=== PATIENT | female | born 1980 | race African-American/Black ===

== ENCOUNTER 2018-03-03 16:17 | Emergency (ER) | payer MEDICAID ==
--- NOTE | 2018-03-03 18:11 | ER Document Report ---
ED Medical Screen (RME) - General Chief Complaint: Chest Pain Stated Complaint: CHEST PAIN, LEG PAIN Time Seen by Provider: 03/03/18 18:07 Notes: Patient has 2 complaints. First she is complaining of pain in the upper center of her chest anteriorly started yesterday. She had similar symptoms in pain about a year ago and was diagnosed at that time with bronchitis. Her second problem is she says both of her legs are aching in the calf region primarily, starting about a week ago. Recalls no unusual activity or injury to that area. Recalls no injury. Does not think it swollen in either leg. Has some cough, but denies significant chest congestion. Has not had any URI symptoms. No fevers. Patient has a history of acid reflux and hypertension. She is also had her thyroid removed and is on thyroid supplement. 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 Also a partial hysterectomy. TRAVEL OUTSIDE OF THE [place] IN LAST 30 DAYS: No - Related Data Allergies/Adverse Reactions: No Known Allergies Allergy (Verified 03/03/18 16:19) Past Medical History - Social History Frequency of alcohol use: Occasional Drug Abuse: None Renal/ Medical History: Denies: Hx Peritoneal Dialysis Physical Exam - Vital signs Vitals: Temp Pulse Resp BP Pulse Ox 98.9 F 86 20 146/93 H 99 03/03/18 16:31 03/03/18 16:31 03/03/18 16:31 03/03/18 16:31 03/03/18 16:31 Course - Vital Signs Vital signs: Temp Pulse Resp BP Pulse Ox 98.9 F 86 20 146/93 H 99 03/03/18 16:31 03/03/18 16:31 03/03/18 16:31 03/03/18 16:31 03/03/18 16:31
--- NOTE | 2018-03-03 18:26 | RADIOLOGY REPORT (SQ) ---
EXAM DESCRIPTION: CHEST 2 VIEWS COMPLETED DATE/TIME: 03/03/2018 6:18 pm REASON FOR STUDY: Chest pain COMPARISON: None. EXAM PARAMETERS: NUMBER OF VIEWS: two views TECHNIQUE: Digital Frontal and Lateral radiographic views of the chest acquired. RADIATION DOSE: NA LIMITATIONS: none FINDINGS: LUNGS AND PLEURA: No opacities, masses or pneumothorax. No pleural effusion. MEDIASTINUM AND HILAR STRUCTURES: No masses or contour abnormalities. HEART AND VASCULAR STRUCTURES: Heart normal size. No evidence for failure. BONES: No acute findings. HARDWARE: None in the chest. OTHER: No other significant finding. IMPRESSION: NO ACUTE RADIOGRAPHIC FINDING IN THE CHEST. TECHNICAL DOCUMENTATION: JOB ID: [id number] [employer]- All Rights Reserved Reading location - IP/workstation name: [email or web address]
--- NOTE | 2018-03-03 18:38 | EKG REPORT ---
SEVERITY:- BORDERLINE ECG - SINUS RHYTHM BORDERLINE T ABNORMALITIES, ANTERIOR LEADS : Confirmed by: Diego Yun MD 03-Mar-2018 18:38:36
[2018-03-03 18:50] LABS: ABSOLUTE BASOPHILS # (AUTO) 0.1 10^3/uL (0.0-0.2); ABSOLUTE EOSINOPHILS # (AUTO) 1.1 10^3/uL (0.0-0.6); ABSOLUTE LYMPHOCYTES (AUTO) 2.9 10^3/uL (0.5-4.7); ABSOLUTE MONOCYTES (AUTO) 0.6 10^3/uL (0.1-1.4); ABSOLUTE NEUT (AUTO) 3.4 10^3/uL (1.7-8.2); BASOPHILS % (AUTO) 0.9 % (0-2); EOSINOPHILS % (AUTO) 13.7 % (0-6); HEMATOCRIT 42.4 % (36.0-47.0); HEMOGLOBIN 14.5 g/dL (12.0-15.5); LYMPHOCYTES % (AUTO) 35.9 % (13-45); MEAN CORPUSCULAR HEMOGLOBIN 33.4 pg (27.0-33.4); MEAN CORPUSCULAR HGB CONC 34.2 g/dL (32.0-36.0); MEAN CORPUSCULAR VOLUME 98 fl (80-97); MONOCYTES % (AUTO) 7.5 % (3-13); PLATELET COUNT 248 10^3/uL (150-450); RED BLOOD COUNT 4.34 10^6/uL (3.72-5.28); RED CELL DISTRIBUTION WIDTH 13.2 % (11.5-14.0); TOTAL CELLS COUNTED % (AUTO) 100 %; WHITE BLOOD COUNT 8.1 10^3/uL (4.0-10.5)
[2018-03-03 19:13] LABS: ALANINE AMINOTRANSFERASE 29 U/L (9-52); ALBUMIN 4.2 g/dL (3.5-5.0); ALKALINE PHOSPHATASE 105 U/L (38-126); ANION GAP 10 (5-19); ASPARTATE AMINO TRANSFERASE 17 U/L (14-36); BILIRUBIN,DIRECT 0.3 mg/dL (0.0-0.4); BILIRUBIN,TOTAL 0.6 mg/dL (0.2-1.3); BLOOD UREA NITROGEN 14 mg/dL (7-20); CALCIUM 9.6 mg/dL (8.4-10.2); CARBON DIOXIDE 30 mmol/L (22-30); CHLORIDE 102 mmol/L (98-107); CREATINE KINASE 49 U/L (30-135); GLUCOSE 91 mg/dL (75-110); LIPASE 125.5 U/L (23-300); POTASSIUM 3.4 mmol/L (3.6-5.0); SODIUM 142.3 mmol/L (137-145); TOTAL PROTEIN 7.4 g/dL (6.3-8.2)
[2018-03-03 19:30] LABS: CREATINE KINASE MB < 0.22 ng/mL (<4.55); TROPONIN I < 0.012 ng/mL
--- NOTE | 2018-03-03 21:35 | ER Document Report ---
ED General - General Chief Complaint: Chest Pain Stated Complaint: CHEST PAIN, LEG PAIN Time Seen by Provider: 03/03/18 18:07 TRAVEL OUTSIDE OF THE [place] IN LAST 30 DAYS: No - HPI Notes: 37-year-old female presents with about 1 week of intermittent central chest pressure. Symptoms are "random" and lasts anywhere from minutes to hours. Pain worsens with palpation and movement. She reports a nonproductive cough. Has occasional shortness of breath. No hemoptysis. Denies radiation of pain. No exertional symptoms. No history of coronary disease. No history of clots, hormone use, or travel. She has had cramping in both calves for the past several days. Has not been out in the heat. She states she has been eating and drinking well. Denies fevers or chills. No family history of heart disease. No risk factors for coronary disease. - Related Data Allergies/Adverse Reactions: No Known Allergies Allergy (Verified 03/03/18 16:19) Past Medical History - Social History Smoking Status: Current Every Day Smoker Frequency of alcohol use: Occasional Drug Abuse: None Family History: Reviewed & Not Pertinent Patient has suicidal ideation: No Patient has homicidal ideation: No Renal/ Medical History: Denies: Hx Peritoneal Dialysis Review of Systems - Review of Systems Notes: Constitutional: Negative for fever. HENT: Negative for sore throat. Eyes: Negative for visual changes. Cardiovascular: Positive for chest pain. Respiratory: Positive for shortness of breath and cough. Gastrointestinal: Negative for abdominal pain, vomiting or diarrhea. Genitourinary: Negative for dysuria. Musculoskeletal: Negative for back pain. Positive for leg cramps Skin: Negative for rash. Neurological: Negative for headaches, weakness or numbness. 10 point ROS negative except as marked above and in HPI. Physical Exam - Vital signs Vitals: Temp Pulse Resp BP Pulse Ox 98.9 F 86 20 146/93 H 99 03/03/18 16:31 03/03/18 16:31 03/03/18 16:31 03/03/18 16:31 03/03/18 16:31 - Notes Notes: PHYSICAL EXAMINATION: GENERAL: Well-appearing, well-nourished and in no acute distress. HEAD: Atraumatic, normocephalic. EYES: Pupils equal round and reactive to light, extraocular movements intact, conjunctiva are normal. ENT: nares patent, oropharynx clear without exudates. Moist mucous membranes. NECK: Normal range of motion, supple without lymphadenopathy LUNGS: Breath sounds clear to auscultation bilaterally and equal. No wheezes rales or rhonchi. HEART: Regular rate and rhythm, diffuse chest wall tenderness. No erythema or crepitus ABDOMEN: Soft, nontender, normoactive bowel sounds. No guarding, no rebound. No masses appreciated. EXTREMITIES: Normal range of motion, no pitting or edema. No cyanosis. Tenderness bilateral legs without any swelling. Negative Homans sign. NEUROLOGICAL: Cranial nerves grossly intact. Normal speech, normal gait. Normal sensory and motor exams. PSYCH: Normal mood, normal affect. SKIN: Warm, Dry, normal turgor, no rashes or lesions noted. Course - Re-evaluation Re-evalutation: 03/03/18 21:39 PERC negative. Low risk heart score. Pain reproducible with cough. Likely pleuritic. No indication for antibiotics. Advised to drink plenty of fluids and take naproxen. Blood pressure was elevated. Advise follow-up with a primary care physician for recheck and possible medication. At this time will discharge with return precautions and follow-up recommendations. Verbal discharge instructions given a the bedside and opportunity for questions given. Medication warnings reviewed. Patient is in agreement with this plan and has verbalized understanding of return precautions and the need for primary care follow-up in the next 24-72 hours. Voice dictation software was used. Chart was reviewed, but errors may exist. - Vital Signs Vital signs: Temp Pulse Resp BP Pulse Ox 98.3 F 86 18 161/104 H 100 03/03/18 21:33 03/03/18 16:31 03/03/18 21:01 03/03/18 21:01 03/03/18 21:01 - Laboratory Result Diagrams: 03/03/18 18:30 03/03/18 18:30 Laboratory results interpreted by me: 03/03/18 03/03/18 18:30 18:30 MCV 98 H Eosinophils % 13.7 H Absolute Eosinophils 1.1 H Potassium 3.4 L Discharge - Discharge Clinical Impression: Chest pain Qualifiers: Chest pain type: unspecified Qualified Code(s): R07.9 - Chest pain, unspecified Hypertension Qualifiers: Hypertension type: unspecified Qualified Code(s): I10 - Essential (primary) hypertension Condition: Stable Disposition: HOME, SELF-CARE Instructions: Chest Pain of Unclear Cause ([facility]) Additional Instructions: Monitor blood pressure. Follow-up with your doctor for further management. Return for any worsening or concerning symptoms. Take naproxen for pain. Prescriptions: Naproxen 500 mg PO Q12 #20 tablet Forms: Elevated Blood Pressure Referrals: FABIANO BALL MD [ACTIVE STAFF] - Follow up in 3-5 days
[2018-03-03 22:06] VITALS: BP 137/92
== END 2018-03-03 22:06 | disposition home or self-care (01) ==
LOC: ER 16:17
DX: R07.89 Other chest pain (principal); I10 Essential (primary) hypertension; R05 Cough; R06.02 Shortness of breath; R25.2 Cramp and spasm; F17.200 Nicotine dependence, unspecified, uncomplicated
CPT/HCPCS: 36415; 71046; 80053; 82550; 82553; 83690; 84484; 85025; 93005; 93010; 99285

== ENCOUNTER 2018-04-02 17:12 | Emergency (ER) | payer MEDICAID ==
[2018-04-02] MEDS ORDERED: IPRATROPIUM/ALBUTEROL 0.5-2.5 MG/3 ML AMPUL NEB ONE (18:16)
[2018-04-02] MEDS ORDERED: PREDNISONE 20 MG TABLET PO ONE (18:17)
--- NOTE | 2018-04-02 19:01 | RADIOLOGY REPORT (SQ) ---
EXAM DESCRIPTION: CHEST 2 VIEWS COMPLETED DATE/TIME: 04/02/2018 6:35 pm REASON FOR STUDY: cough, fever COMPARISON: Two-view chest 03/03/2018 EXAM PARAMETERS: NUMBER OF VIEWS: two views TECHNIQUE: Digital Frontal and Lateral radiographic views of the chest acquired. RADIATION DOSE: NA LIMITATIONS: none FINDINGS: LUNGS AND PLEURA: No opacities, masses or pneumothorax. No pleural effusion. MEDIASTINUM AND HILAR STRUCTURES: No masses or contour abnormalities. HEART AND VASCULAR STRUCTURES: Heart normal size. No evidence for failure. BONES: Mild convex rightward upper thoracic curvature HARDWARE: Clips right upper quadrant post cholecystectomy OTHER: No other significant finding. IMPRESSION: NO ACUTE RADIOGRAPHIC FINDING IN THE CHEST. TECHNICAL DOCUMENTATION: JOB ID: [id number] [employer]- All Rights Reserved Reading location - IP/workstation name: [email or web address]
--- NOTE | 2018-04-02 19:21 | ER Document Report ---
HPI - HPI Pain Level: Denies Notes: Patient is a 37-year-old female who presents with chief complaint of shortness of breath and cough. Patient reports that she has been having the symptoms for approximately 2-3 days. Patient denies any history of asthma but does report that she has had bronchitis several times. Patient reports that she smokes approximately 1/4 pack/day of cigarettes. Patient states her cough is productive with occasional yellowish white sputum. Patient denies any fevers. - DERM Skin Color: Normal Past Medical History - General Information source: Patient - Social History Smoking Status: Current Every Day Smoker Chew tobacco use (# tins/day): No Frequency of alcohol use: None Drug Abuse: None Family History: Reviewed & Not Pertinent Patient has suicidal ideation: No Patient has homicidal ideation: No - Past Medical History Cardiac Medical History: Reports: Hx Hypertension Pulmonary Medical History: Reports: Hx Bronchitis Renal/ Medical History: Denies: Hx Peritoneal Dialysis GI Medical History: Reports: Hx Gastroesophageal Reflux Disease Past Surgical History: Reports: Hx Thyroid Surgery - thyroid removed Vertical Provider Document - CONSTITUTIONAL Notes: PHYSICAL EXAMINATION: GENERAL: Well-appearing, well-nourished and in no acute distress. HEAD: Atraumatic, normocephalic. EYES: Pupils equal round extraocular movements intact, conjunctiva are normal. ENT: Nares patent NECK: Normal range of motion LUNGS: No respiratory distress, inspiratory and expiratory wheezing noted bilaterally however it is mild. Musculoskeletal: Normal range of motion NEUROLOGICAL: Normal speech, normal gait. PSYCH: Normal mood, normal affect. SKIN: Warm, Dry, normal turgor, no rashes or lesions noted. - INFECTION CONTROL TRAVEL OUTSIDE OF THE [place] IN LAST 30 DAYS: No Course - Re-evaluation Re-evalutation: 04/02/18 19:20 Patient given 2 DuoNeb treatments and her wheezing has resolved. Patient will be given prednisone and treated with a 4-day course of prednisone outpatient. Patient's examination and presentation most consistent with bronchitis. Patient will be discharged home in stable condition. - Vital Signs Vital signs: Temp Pulse Resp BP Pulse Ox 98 F 64 18 170/104 H 100 04/02/18 17:50 04/02/18 17:50 04/02/18 17:50 04/02/18 17:50 04/02/18 17:50 Discharge - Discharge Clinical Impression: Bronchitis, Bronchospasm Condition: Stable Disposition: HOME, SELF-CARE Additional Instructions: Bronchitis with Bronchospasm (Wheezing) You have bronchitis with bronchospasm (wheezing). Sometimes people develop wheezing with a chest cold. This occurs either because of an underlying tendency toward asthma or because the virus itself irritates the bronchial tubes. This irritation causes cough, shortness of breath, and wheezing. Emergency treatment of bronchospasm may include adrenaline shots or bronchodilator aerosol. You may feel lightheaded and have a rapid pulse for an hour or two. Rest and get plenty of fluids. At home, we'll treat you with a bronchodilator inhaler. Corticosteroids may be required for some patients. Until you recover, avoid chemical fumes, dusts, pollens, and exercising in very cold or dry air. If you smoke, stop now! Most cases of bronchitis get better without antibiotics. We prescribe antibiotics when we believe bacteria are damaging your airways, or if there's high risk the bronchitis will worsen into pneumonia. Increase your fluid intake. A cool mist humidifier may make your lungs more comfortable. An expectorant (cough medicine that loosens phlegm) can help. Repeated episodes of bronchitis and bronchospasm may result in lung damage -- for example, chronic bronchitis, recurrent pneumonias, or emphysema. If you develop a fever, increased wheezing, chest pain, or severe shortness of breath, you should contact the doctor immediately. Take the medications as prescribed. You might want to consider putting a cool mist humidifier at your bedside. Please try to stop smoking as this is making the bronchitis worse. Return to the emergency department if you have worsening symptoms or develop a fever. Follow-up with your primary care provider in the next 3-5 days for follow-up. Prescriptions: Albuterol Sulfate [Proair HFA Inhalation Aerosol 8.5 gm MDI] 2 puff IH Q4H PRN # 1 mdi PRN Reason: Prednisone [Deltasone 20 mg Tablet] 3 tab PO DAILY 4 Days #12 tablet
[2018-04-02 19:41] VITALS: BP 155/97
== END 2018-04-02 19:41 | disposition home or self-care (01) ==
LOC: ER 17:12
DX: J45.909 Unspecified asthma, uncomplicated (principal); R06.02 Shortness of breath; R05 Cough; F17.210 Nicotine dependence, cigarettes, uncomplicated; F17.200 Nicotine dependence, unspecified, uncomplicated; I10 Essential (primary) hypertension
CPT/HCPCS: 94640; 99283; 71046; J7512; J7620

== ENCOUNTER → 2018-12-05 | Outpatient (CLI) | payer MEDICAID ==
--- NOTE | 2018-12-05 15:49 | RADIOLOGY REPORT (SQ) ---
EXAM DESCRIPTION: KNEE RIGHT 2 VIEWS COMPLETED DATE/TIME: 12/05/2018 3:39 pm REASON FOR STUDY: M25.561 PAIN IN RIGHT KNEE COMPARISON: None. NUMBER OF VIEWS: Two views. TECHNIQUE: AP and lateral radiographic images acquired of the right knee. LIMITATIONS: None. FINDINGS: MINERALIZATION: Normal. BONES: No acute fracture or dislocation. No worrisome bone lesions. No significant osteophytes. JOINT: No effusion. No chondrocalcinosis. OTHER: No other significant finding. IMPRESSION: NEGATIVE STUDY OF THE RIGHT KNEE. NO EXPLANATION FOR PAIN. TECHNICAL DOCUMENTATION: JOB ID: [id number] [employer]- All Rights Reserved Reading location - IP/workstation name: [email or web address]
== END ==
LOC: RAD 15:22
PROVIDERS: ATTEND Internal Medicine
DX: M25.561 Pain in right knee (principal)

== ENCOUNTER 2018-12-17 19:20 | Emergency (ER) | payer MEDICAID ==
[2018-12-17] MEDS ORDERED: AMLODIPINE BESYLATE 2.5 MG TABLET PO ONE (20:29)
--- NOTE | 2018-12-17 20:32 | ER Document Report ---
ED Medical Screen (RME) - General Chief Complaint: Knee Pain Stated Complaint: KNEE PAIN Time Seen by Provider: 12/17/18 20:24 Notes: Patient is a 38-year-old female presents to the emergency department with right knee, right calf pain. Patient states she is had this pain off and on for months. Was recently to Dr. Altamirano who did an x-ray of her right knee. Told her that there was "nothing wrong." Patient states she continues with pain which is why she presents to the emergency room. Patient states she was placed on lisinopril 40 mg HCTZ 12.5 mg proximally 3 months ago for high blood pressure. States her blood pressure has "continue to be high." States her blood pressure was elevated at her meeting with Dr. Altamirano's 2 days ago and states "He is not going to do anything about it." Patient is denying chest pain, shortness of breath, lightheadedness, dizzy, headache, blurred vision. Patient's only complaint is generalized right knee and right calf pain. Patient is denying any trauma GENERAL: Alert, interacts well. No acute distress. EXTREMITIES: Moves all 4 extremities spontaneously. normal radial and dorsalis pedis pulses bilaterally. There is slight swelling noted right knee, pain upon palpation right popliteal area and right calf. I have greeted and performed a rapid initial assessment of this patient. A comprehensive ED assessment and evaluation of the patient, analysis of test results and completion of the medical decision making process will be conducted by additional ED providers. I have specifically instructed the patient or family members with the patient to immediately return to any nursing staff should anything change in the patient's condition or with their chief complaint. This medical record was dictated with voice recognizing software. There may be grammatical, syntax errors that are unintended. TRAVEL OUTSIDE OF THE [place] IN LAST 30 DAYS: No - Related Data Allergies/Adverse Reactions: No Known Allergies Allergy (Verified 04/02/18 17:14) Past Medical History - Social History Frequency of alcohol use: None Drug Abuse: None - Past Medical History Cardiac Medical History: Reports: Hx Hypertension Pulmonary Medical History: Reports: Hx Bronchitis Renal/ Medical History: Denies: Hx Peritoneal Dialysis GI Medical History: Reports: Hx Gastroesophageal Reflux Disease Past Surgical History: Reports: Hx Hysterectomy, Hx Thyroid Surgery - thyroid removed Physical Exam - Vital signs Vitals: Temp Pulse Resp BP Pulse Ox 98.3 F 85 20 188/110 H 98 12/17/18 19:59 12/17/18 19:59 12/17/18 19:59 12/17/18 19:59 12/17/18 19:59 Course - Vital Signs Vital signs: Temp Pulse Resp BP Pulse Ox 98.3 F 85 20 188/110 H 98 12/17/18 19:59 12/17/18 19:59 12/17/18 19:59 12/17/18 19:59 12/17/18 19:59
[2018-12-17] MEDS ORDERED: AMLODIPINE BESYLATE 2.5 MG TABLET ONE (22:44)
[2018-12-18] MEDS ORDERED: COLCHICINE 0.6 MG TABLET PO ONE ×2 (00:04→00:06)
[2018-12-18] MEDS ORDERED: KETOROLAC TROMETHAMINE 60 MG/2 ML SDV IM ONE (00:06)
[2018-12-18] MEDS ORDERED: HYDROCODONE/ACETAMINOPHEN 5-325 MG (6 TAB/ER DISP) PO PRN (00:06)
--- NOTE | 2018-12-18 00:13 | ER Document Report ---
ED General - General Chief Complaint: Knee Pain Stated Complaint: KNEE PAIN Time Seen by Provider: 12/17/18 20:24 Notes: Patient is a 38-year-old female with a past medical history of essential hypertension, presents complaining of approximately 1 to 2 months of intermittent swelling and pain to her right knee. Describes this as being a throbbing, aching, constant discomfort to the knee. Worsened by walking. Has been trying ibuprofen without any significant improvement. Saw her primary care doctor regarding this issue, right knee x-ray was done and she was told that it was normal but no other solutions were provided per her report. Denies history of DVT or pulmonary was. Has not had fever or constitutional symptoms. Denies any difficulty in ranging the knee. No injury to the knee. No history of similar issues prior to the past 1 to 2 months. TRAVEL OUTSIDE OF THE [place] IN LAST 30 DAYS: No - Related Data Allergies/Adverse Reactions: No Known Allergies Allergy (Verified 04/02/18 17:14) Past Medical History - General Information source: Patient - Social History Smoking Status: Current Every Day Smoker Frequency of alcohol use: None Drug Abuse: None Family History: Reviewed & Not Pertinent Patient has suicidal ideation: No Patient has homicidal ideation: No - Past Medical History Cardiac Medical History: Reports: Hx Hypertension Pulmonary Medical History: Reports: Hx Bronchitis Renal/ Medical History: Denies: Hx Peritoneal Dialysis GI Medical History: Reports: Hx Gastroesophageal Reflux Disease Past Surgical History: Reports: Hx Hysterectomy, Hx Thyroid Surgery - thyroid removed Review of Systems - Review of Systems Notes: Constitutional: Negative for fever. HENT: Negative for sore throat. Eyes: Negative for visual changes. Cardiovascular: Negative for chest pain. Respiratory: Negative for shortness of breath. Gastrointestinal: Negative for abdominal pain, vomiting or diarrhea. Genitourinary: Negative for dysuria. Musculoskeletal: Positive for right knee pain Skin: Negative for rash. Neurological: Negative for headaches, weakness or numbness. 10 point ROS negative except as marked above and in HPI. Physical Exam - Vital signs Vitals: Temp Pulse Resp BP Pulse Ox 98.3 F 85 20 188/110 H 98 12/17/18 19:59 12/17/18 19:59 12/17/18 19:59 12/17/18 19:59 12/17/18 19:59 Interpretation: Hypertensive Notes: PHYSICAL EXAMINATION: GENERAL: Well-appearing, well-nourished and in no acute distress. HEAD: Atraumatic, normocephalic. EYES: Pupils equal round and reactive to light, extraocular movements intact, sclera anicteric, conjunctiva are normal. ENT: nares patent, oropharynx clear without exudates. Moist mucous membranes. NECK: Normal range of motion, supple without lymphadenopathy LUNGS: Breath sounds clear to auscultation bilaterally and equal. No wheezes rales or rhonchi. HEART: Regular rate and rhythm without murmurs 2+ DP pulses bilaterally ABDOMEN: Soft, nontender, normoactive bowel sounds. No guarding, no rebound. No masses appreciated. EXTREMITIES: Normal range of motion, mild joint effusion of the right knee, full flexion extension of the right knee present, no pitting or edema. No cyanosis. NEUROLOGICAL: No focal neurological deficits. Moves all extremities spontaneously and on command. PSYCH: Normal mood, normal affect. SKIN: Warm, Dry, normal turgor, no rashes or lesions noted. Course - Re-evaluation Re-evalutation: 12/18/18 00:09 Patient is a 38-year-old female who presents with complaints of several months of intermittent right knee swelling and pain. The patient has a full flexion extension of the knee, knee is moderately warm but no erythema. Clinically inconsistent with septic joint given duration of symptoms, absence of fever, full range of motion of the knee. Patient states that there is a strong, history of gout and pseudogout and suspect that this may be the same. She saw her primary care doctor several days ago, had a knee x-ray and was informed that this was normal. She came tonight due to the ongoing nature of her symptoms. The patient does not need arthrocentesis at this point secondary to to my low clinical concern for septic joint. Patient did have a venous Doppler ordered in triage but unfortunate this is unable to be completed tonight due to lack of availability. Very low clinical suspicion that the patient does have a DVT as she has no calf swelling, well score is 0, no palpable pain to the proximal leg. I have asked that she has this completed her tomorrow in the emergency department or through her primary care doctor within the next 24 hours and she is in agreement. At this time will discharge with return precautions and follow-up recommendations. Verbal discharge instructions given a the bedside and opportunity for questions given. Medication warnings reviewed. Patient is in agreement with this plan and has verbalized understanding of return precautions and the need for primary care follow-up in the next 24 to 48 hours. - Vital Signs Vital signs: Temp Pulse Resp BP Pulse Ox 97.9 F 84 16 186/106 H 99 12/18/18 01:06 12/18/18 01:11 12/18/18 01:06 12/18/18 01:11 12/18/18 01:06 Discharge - Discharge Clinical Impression: Effusion, right knee Right knee pain Qualifiers: Chronicity: acute Qualified Code(s): M25.561 - Pain in right knee Condition: Good Disposition: HOME, SELF-CARE Additional Instructions: You were seen today for right knee pain and swelling which may be gout or pseudogout. Please take the second dose of colchicine that you were sent home with 1 hour after receiving yourfirst dose. Take ibuprofen 600 mg with Tylenol 650 mg every 6 hours as needed for pain. Follow-up with your primary care doctor in the next several days. Return if you have fever greater than 100.4F, worsening pain, become unable to move the knee, or have any other symptoms that are worrisome to you. As we discussed we still want you to get an ultrasound of your leg but are unable to perform the study tonight. Please get the ultrasound performed either tomorrow or the emergency department or at your primary care doctor's within the next 24 hours.
[2018-12-18 01:11] VITALS: BP 186/106
== END 2018-12-18 01:17 | disposition home or self-care (01) ==
LOC: ER 19:20
DX: M25.561 Pain in right knee (principal); M25.461 Effusion, right knee; I10 Essential (primary) hypertension; F17.200 Nicotine dependence, unspecified, uncomplicated
CPT/HCPCS: 99283; J3490 ×2; J1885

== ENCOUNTER 2019-09-10 11:32 | Emergency (ER) | payer MEDICAID ==
[2019-09-10 11:38] VITALS: BP 182/119
--- NOTE | 2019-09-10 11:40 | ER Document Report ---
HPI - HPI Patient complains to provider of: insect bite Time Seen by Provider: 09/10/19 11:34 Onset: This morning Onset/Duration: Sudden Quality of pain: Other - sore Context: This 38-year-old female presents emergency department with insect bite to her right thigh. Reports she was laying in bed when she felt an insect bite her. She did not see the insect. She reports the area is sore. She has not taken anything for the pain. Denies allergies. Denies history of MRSA. No other complaints such as fever vomiting diarrhea. Associated Symptoms: None Exacerbated by: Denies Relieved by: Denies Similar symptoms previously: No Recently seen / treated by doctor: No - REPRODUCTIVE Reproductive: DENIES: : Past Medical History - General Information source: Patient Last Menstrual Period: Hysterectomy - Social History Smoking Status: Current Every Day Smoker Cigarette use (# per day): Yes Frequency of alcohol use: None Drug Abuse: None Family History: Reviewed & Not Pertinent - Past Medical History Cardiac Medical History: Reports: Hx Hypertension Pulmonary Medical History: Reports: Hx Bronchitis Renal/ Medical History: Denies: Hx Peritoneal Dialysis GI Medical History: Reports: Hx Gastroesophageal Reflux Disease Past Surgical History: Reports: Hx Hysterectomy, Hx Thyroid Surgery - thyroid removed Vertical Provider Document - CONSTITUTIONAL Agree With Documented VS: Yes Exam Limitations: No Limitations General Appearance: WD/WN, No Apparent Distress - INFECTION CONTROL TRAVEL OUTSIDE OF THE [place] IN LAST 30 DAYS: No - HEENT HEENT: Atraumatic, Normocephalic. negative: Conjuctival Injection - NECK Neck: Normal Inspection, Supple - RESPIRATORY Respiratory: Breath Sounds Normal, No Respiratory Distress - CARDIOVASCULAR Cardiovascular: Regular Rate - MUSCULOSKELETAL/EXTREMETIES Musculoskeletal/Extremeties: MAEW, FROM, Non-Tender - NEURO Level of Consciousness: Awake, Alert, Appropriate Motor/Sensory: No Motor Deficit - DERM Integumentary: Warm, Dry Adult Front & Back Diagram: 1 - insect bite per patient, no erythema no swelling no pustule no warmth site looks benign Course - Re-evaluation Re-evalutation: 09/10/19 11:46 Patient points to the right lateral thigh of area of insect bite. No obvious insect bite noted no erythema no swelling no warmth site completely benign. Patient was instructed on signs and symptoms of abscess. Instructed to follow- up with her primary care for recheck or return here for any further concerns. She verbalized understanding to all instructions - Vital Signs Vital signs: Temp Pulse Resp BP Pulse Ox 98.9 F 81 16 182/119 H 99 09/10/19 11:37 09/10/19 11:37 09/10/19 11:37 09/10/19 11:37 09/10/19 11:37 Discharge - Discharge Clinical Impression: Insect bite Qualifiers: Encounter type: initial encounter Site of insect bite: thigh Laterality: right Qualified Code(s): S70.361A - Insect bite (nonvenomous), right thigh, initial encounter Condition: Stable Disposition: HOME, SELF-CARE Instructions: Insect Bites ([facility]) Additional Instructions: *You have been evaluated for an insect bite to your right thigh *Monitor the site for signs of infection such as increasing pain, redness, swelling, warmth *keep the area clean *Follow up with a primary care provider within 1 week *Return to ED for signs of infection, worsening condition, changes, needs Monitor your blood pressure. Your blood pressure was elevated today. This may be because you were anxious, in pain or because you need medication. It is important to follow up with your primary care provider for full evaluation. Forms: Elevated Blood Pressure
== END 2019-09-10 11:41 | disposition home or self-care (01) ==
LOC: ER 11:32
DX: S70.361A Insect bite (nonvenomous), right thigh, initial encounter (principal); W57.XXXA Bitten or stung by nonvenomous insect and other nonvenomous arthropods, initial encounter; F17.210 Nicotine dependence, cigarettes, uncomplicated; Z90.710 Acquired absence of both cervix and uterus
CPT/HCPCS: 99281

== ENCOUNTER 2019-09-15 16:07 | Emergency (ER) | payer MEDICAID ==
[2019-09-15] MEDS ORDERED: KETOROLAC TROMETHAMINE INJ/PF 30 MG/1 ML SDV IV ONE (16:17)
[2019-09-15] MEDS ORDERED: LIDOCAINE 5% (700 MG) TRANSDERMAL ADH..PATCH TP ONE (16:24)
--- NOTE | 2019-09-15 16:24 | ER Document Report ---
ED General - General Stated Complaint: CHEST PAIN Time Seen by Provider: 09/15/19 16:10 Primary Care Provider: [facility] [Provider Group] - Follow up as needed [facility] [Provider Group] - Follow up as needed TRAVEL OUTSIDE OF THE [place] IN LAST 30 DAYS: No - HPI Notes: Patient is a 38-year-old female with no significant past medical history who presents complaining of having right shoulder pain that began today without precipitating event or injury. The pain will occasionally radiate down her arm. Patient states that movement makes the pain worse to the shoulder. She does not have any history of IV drug abuse or septic joint in the past. Denies history of diabetes. Denies drug allergies. Denies any prolonged immobilization, distance travel, recent surgery/trauma, personal cancer history, hormone use, smoking, or previous DVT/PE. Denies any headache, fever, neck pain, URI, sore throat, chest pain, palpitations, syncope, cough, shortness of breath, wheeze, dyspnea, abdominal pain, nausea/vomiting/diarrhea, urinary retention, dysuria, hematuria, loss of control of bowel or bladder, muscle paralysis/weakness, or rash. - Related Data Allergies/Adverse Reactions: No Known Allergies Allergy (Verified 09/10/19 11:37) Past Medical History - Social History Smoking Status: Never Smoker Family History: Reviewed & Not Pertinent - Past Medical History Cardiac Medical History: Reports: Hx Hypertension Pulmonary Medical History: Reports: Hx Bronchitis Renal/ Medical History: Denies: Hx Peritoneal Dialysis GI Medical History: Reports: Hx Gastroesophageal Reflux Disease Past Surgical History: Reports: Hx Hysterectomy, Hx Thyroid Surgery - thyroid removed Review of Systems - Review of Systems -: Yes All other systems reviewed and negative Physical Exam - Notes Notes: PHYSICAL EXAMINATION: GENERAL: Well-appearing, well-nourished and in no acute distress. HEAD: Atraumatic, normocephalic. EYES: Pupils equal round and reactive to light, extraocular movements intact, sclera anicteric, conjunctiva are normal. ENT: Nares patent and without discharge. oropharynx clear without exudates. No tonsilar hypertrophy or erythema. Moist mucous membranes. NECK: Normal range of motion, supple without lymphadenopathy. Non-tender. Spurling negative. No rigidity/meningismus. LUNGS: Breath sounds clear to auscultation bilaterally and equal. No wheezes rales or rhonchi. HEART: Regular rate and rhythm without murmurs, rubs, gallops. ABDOMEN: Soft, nontender, nondistended abdomen. No guarding, no rebound. No masses appreciated. Normal bowel sounds present. No CVA tenderness bilaterally. Musculoskeletal: Rt shoulder: FROM to passive. LROM to active due to pain. Strength 5+/5. + impingement test. Neg speed test. No crepitus. No erythema or warmth. No deformity or ecchymosis. RC intact 5+/5 strength. + tenderness to the superior lateral shoulder. N/V intact distal. Extremities: No cyanosis, clubbing, or edema b/l. Peripheral pulses 2+. Capillary refill less than 3 seconds. Rinku neg. No asymmetry to LE's. NEUROLOGICAL: Normal speech, normal gait. PSYCH: Normal mood, normal affect. SKIN: Warm, Dry, normal turgor, no rashes or lesions noted. NECK: Normal range of motion, supple without lymphadenopathy. Non-tender. Spurling negative. No rigidity/meningismus. Course - Re-evaluation Re-evalutation: 09/15/19 Patient is an afebrile, well-hydrated, 38-year-old female who presents to the ED with Rt shoulder pain which I suspect to be inflammatory. Vitals are acceptable without any significant tachycardia, tachypnea, or hypoxia. PE is otherwise unremarkable for any neurovascular compromise, obvious tendon/ligament rupture, obvious fracture/dislocation, septic joint. Pt's complaint is completely reproducible by palpation and ROM of the rt shoulder. X-ray was unremarkable for any acute pathology. CBC, CMP unremarkable. Toradol given IV. Patient is nontoxic-appearing. She has absolutely no chest pain, shortness of breath, or dyspnea (nor has she had any of these symptoms). No other labs or imaging war ranted at this time based on H&P. Conservative measures otherwise for symptoms. Recheck with your PCM in 3-5 days. Consider consult orthopedics. Return to the ED with any worsening/concerning symptoms otherwise as reviewed in discharge. Patient is in agreement. - Laboratory Result Diagrams: 09/15/19 16:24 09/15/19 16:24 Laboratory results interpreted by me: 09/15/19 16:24 Eos % (Auto) 13.0 H Absolute Eos (auto) 1.2 H Discharge - Discharge Clinical Impression: Right shoulder pain Qualifiers: Chronicity: acute Qualified Code(s): M25.511 - Pain in right shoulder Condition: Stable Disposition: HOME, SELF-CARE Additional Instructions: Rest, Ice, Compression, Elevation Tylenol/ibuprofen as needed Light stretches daily Strength exercises as able Moist heat and massage may help F/u with your PCP in 3-5 days for a recheck Consider consult(s) with Orthopedics/physical therapy for ongoing/worsening symptoms Return to the ED with any worsening symptoms and/or development of fever, headache, chest pain, palpitations, syncope, shortness of breath, trouble breathing, abdominal pain, n/v/d, muscle weakness/paralysis, numbness/tingling, swelling, redness, or other worsening symptoms that are concerning to you. Prescriptions: Ibuprofen [Motrin 800 mg Tablet] 800 mg PO Q8H PRN #15 tab PRN Reason: Referrals: [facility] [Provider Group] - Follow up as needed [facility] [Provider Group] - Follow up as needed
--- NOTE | 2019-09-15 16:55 | RADIOLOGY REPORT (SQ) ---
EXAM DESCRIPTION: SHOULDER RIGHT 2 OR MORE VIEWS COMPLETED DATE/TIME: 09/15/2019 4:43 pm REASON FOR STUDY: Rt shoulder pain COMPARISON: None. NUMBER OF VIEWS: Three views. TECHNIQUE: Internal rotation, external rotation, and Y view images acquired of the right shoulder. LIMITATIONS: None. FINDINGS: MINERALIZATION: Normal. BONES: No acute fracture. JOINTS: No dislocation. VISUALIZED LUNGS AND RIBS: No pneumothorax or rib fracture. SOFT TISSUES: No radiopaque foreign body. OTHER: No other finding. IMPRESSION: No acute osseous abnormality of the right shoulder. TECHNICAL DOCUMENTATION: JOB ID: [id number] 2010 [employer]- All Rights Reserved Reading location - IP/workstation name: [email or web address]
[2019-09-15 16:58] LABS: ALBUMIN 4.4 g/dL (3.5-5.0); ALKALINE PHOSPHATASE 94 U/L (38-126); ANION GAP 10 (5-19); ASPARTATE AMINO TRANSFERASE 21 U/L (14-36); BILIRUBIN,DIRECT 0.3 mg/dL (0.0-0.4); BILIRUBIN,TOTAL 0.5 mg/dL (0.2-1.3); BLOOD UREA NITROGEN 16 mg/dL (7-20); CALCIUM 9.5 mg/dL (8.4-10.2); CARBON DIOXIDE 25 mmol/L (22-30); CHLORIDE 107 mmol/L (98-107); GLUCOSE 101 mg/dL (75-110); TOTAL PROTEIN 7.8 g/dL (6.3-8.2)
[2019-09-15 17:07] LABS: ABSOLUTE BASOPHILS # (AUTO) 0.1 10^3/uL (0.0-0.2); ABSOLUTE EOSINOPHILS # (AUTO) 1.2 10^3/uL (0.0-0.6); ABSOLUTE LYMPHOCYTES (AUTO) 2.8 10^3/uL (0.5-4.7); ABSOLUTE MONOCYTES (AUTO) 0.6 10^3/uL (0.1-1.4); ABSOLUTE NEUT (AUTO) 4.7 10^3/uL (1.7-8.2); BASOPHILS % (AUTO) 0.8 % (0-2); HEMATOCRIT 42.6 % (36.0-47.0); HEMOGLOBIN 14.5 g/dL (12.0-15.5); LYMPHOCYTES % (AUTO) 29.7 % (13-45); MEAN CORPUSCULAR HEMOGLOBIN 33.1 pg (27.0-33.4); MEAN CORPUSCULAR VOLUME 97 fl (80-97); MONOCYTES % (AUTO) 6.5 % (3-13); PLATELET COUNT 246 10^3/uL (150-450); RED BLOOD COUNT 4.38 10^6/uL (3.72-5.28); RED CELL DISTRIBUTION WIDTH 13.7 % (11.5-14.0); TOTAL CELLS COUNTED % (AUTO) 100 %; WHITE BLOOD COUNT 9.5 10^3/uL (4.0-10.5)
[2019-09-15 18:21] VITALS: BP 156/112
--- NOTE | 2019-09-15 18:26 | EKG REPORT ---
SEVERITY:- ABNORMAL ECG - SINUS RHYTHM CONSIDER LEFT VENTRICULAR HYPERTROPHY : Confirmed by: Jeanette Cho MD 15-Sep-2019 18:26:05
== END 2019-09-15 18:37 | disposition home or self-care (01) ==
LOC: ER 16:07
DX: M25.511 Pain in right shoulder (principal); R07.9 Chest pain, unspecified; I10 Essential (primary) hypertension; Z90.710 Acquired absence of both cervix and uterus
CPT/HCPCS: 93005; 99284; 96374; 36415; 85025; 80053; 73030; 93010; J1885; J3490

== ENCOUNTER 2020-04-24 14:51 | Emergency (ER) | payer MEDICAID ==
[2020-04-24] MEDS ORDERED: MORPHINE SULFATE 10 MG/ML INJ IV ONE (15:09)
[2020-04-24] MEDS ORDERED: MAG HYDROX/AL HYDROX/SIMETH SUSP 30 ML UDCUP PO ONE (15:09)
[2020-04-24] MEDS ORDERED: LIDOCAINE 2% VISCOUS SOLN 15 ML UDCUP PO ONE (15:09)
[2020-04-24] MEDS ORDERED: METOCLOPRAMIDE HCL ORAL SOLN 10 MG/10 ML UDCUP PO ONE (15:09)
[2020-04-24 15:35] LABS: ABSOLUTE BASOPHILS # (AUTO) 0.1 10^3/uL (0.0-0.2); ABSOLUTE LYMPHOCYTES (AUTO) 2.7 10^3/uL (0.5-4.7); ABSOLUTE MONOCYTES (AUTO) 0.9 10^3/uL (0.1-1.4); ABSOLUTE NEUT (AUTO) 7.1 10^3/uL (1.7-8.2); BASOPHILS % (AUTO) 0.5 % (0-2); EOSINOPHILS % (AUTO) 8.7 % (0-6); HEMATOCRIT 38.9 % (36.0-47.0); HEMOGLOBIN 13.5 g/dL (12.0-15.5); LYMPHOCYTES % (AUTO) 22.8 % (13-45); MEAN CORPUSCULAR HEMOGLOBIN 33.1 pg (27.0-33.4); MEAN CORPUSCULAR HGB CONC 34.7 g/dL (32.0-36.0); MEAN CORPUSCULAR VOLUME 95 fl (80-97); MONOCYTES % (AUTO) 7.7 % (3-13); PLATELET COUNT 254 10^3/uL (150-450); RED BLOOD COUNT 4.09 10^6/uL (3.72-5.28); SEGMENTED NEUTROPHILS % (AUTO) 60.3 % (42-78); TOTAL CELLS COUNTED % (AUTO) 100 %; WHITE BLOOD COUNT 11.7 10^3/uL (4.0-10.5)
[2020-04-24 15:49] LABS: ALBUMIN 4.1 g/dL (3.5-5.0); ALKALINE PHOSPHATASE 103 U/L (38-126); ANION GAP 9 (5-19); ASPARTATE AMINO TRANSFERASE 18 U/L (14-36); BILIRUBIN,DIRECT 0.2 mg/dL (0.0-0.4); BILIRUBIN,TOTAL 0.4 mg/dL (0.2-1.3); BLOOD UREA NITROGEN 15 mg/dL (7-20); CALCIUM 9.9 mg/dL (8.4-10.2); CARBON DIOXIDE 23 mmol/L (22-30); CHLORIDE 110 mmol/L (98-107); GLUCOSE 110 mg/dL (75-110); POTASSIUM 3.8 mmol/L (3.6-5.0); TOTAL PROTEIN 6.8 g/dL (6.3-8.2)
--- NOTE | 2020-04-24 15:49 | RADIOLOGY REPORT (SQ) ---
EXAM DESCRIPTION: CHEST 2 VIEWS IMAGES COMPLETED DATE/TIME: 04/24/2020 3:35 pm REASON FOR STUDY: right cp COMPARISON: 04/02/2018 EXAM PARAMETERS: NUMBER OF VIEWS: two views TECHNIQUE: Digital Frontal and Lateral radiographic views of the chest acquired. RADIATION DOSE: NA LIMITATIONS: none FINDINGS: LUNGS AND PLEURA: No opacities, masses or pneumothorax. No pleural effusion. MEDIASTINUM AND HILAR STRUCTURES: No masses or contour abnormalities. HEART AND VASCULAR STRUCTURES: Heart normal size. No evidence for failure. BONES: No acute findings. HARDWARE: None in the chest. OTHER: No other significant finding. IMPRESSION: NO ACUTE RADIOGRAPHIC FINDING IN THE CHEST. TECHNICAL DOCUMENTATION: JOB ID: [id number] 2010 [employer]- All Rights Reserved Reading location - IP/workstation name: [email or web address]
--- NOTE | 2020-04-24 16:18 | ER Document Report ---
ED Cardiac - General Chief Complaint: Chest Pain > 30 Stated Complaint: CHEST PAIN Time Seen by Provider: 04/24/20 15:01 Primary Care Provider: DEV MAYO MD [Primary Care Provider] - Follow up as needed Mode of Arrival: Ambulatory Information source: Patient TRAVEL OUTSIDE OF THE [place] IN LAST 30 DAYS: No - HPI Notes: Patient presents with right-sided shoulder and chest pain that started about 3 hours prior to arrival. She states it has been constant. In route paramedics started nitroglycerin drip but she states this did not change the pain. She denies any previous history of similar kinds of pain. She states she has had no previous type of cardiac evaluation. She states she has no previous cardiac history. She denies any known history of diabetes or high cholesterol. She states she does have high blood pressure and takes high blood pressure medications. She also has thyroid disease and takes thyroid medication. No recent falls or trauma. No cough cold or congestion. Nothing has made the pain better except rest. It is mainly worse with movement of the right shoulder. The pain does radiate from the right chest into the right shoulder. Is moderate in intensity. It is sharp. - Related Data Allergies/Adverse Reactions: No Known Allergies Allergy (Verified 09/10/19 11:37) Home Medications: lisinopril, synthroid, aspirin, metoprolol, amlodipine Past Medical History - General Information source: Patient - Social History Smoking Status: Former Smoker Frequency of alcohol use: None Drug Abuse: None Family History: Reviewed & Not Pertinent - Past Medical History Cardiac Medical History: Reports: Hx Hypertension Pulmonary Medical History: Reports: Hx Bronchitis Renal/ Medical History: Denies: Hx Peritoneal Dialysis GI Medical History: Reports: Hx Gastroesophageal Reflux Disease Past Surgical History: Reports: Hx Hysterectomy, Hx Thyroid Surgery - thyroid removed Review of Systems - Review of Systems Constitutional: denies: Chills, Fever Cardiovascular: Chest pain. denies: Palpitations Respiratory: Short of breath - Mild. denies: Cough -: Yes All other systems reviewed and negative Physical Exam - Vital signs Vitals: Temp 98.7 F 04/24/20 14:52 Interpretation: Normal - General General appearance: Appears well, Alert - HEENT Head: Normocephalic, Atraumatic Eyes: Normal Pupils: PERRL - Respiratory Respiratory status: No respiratory distress Chest status: Nontender Breath sounds: Normal Chest palpation: Normal - Cardiovascular Rhythm: Regular Heart sounds: Normal auscultation Murmur: No - Abdominal Inspection: Normal Distension: No distension Bowel sounds: Normal Tenderness: Nontender Organomegaly: No organomegaly - Back Back: Normal, Nontender - Extremities General upper extremity: Normal inspection, Tender - Right shoulder is tender to palpation and has a tender range of motion although range of motion is full., Normal color, Normal ROM, Normal temperature General lower extremity: Normal inspection, Nontender, Normal color, Normal ROM, Normal temperature, Normal weight bearing. No: Rinku's sign - Neurological Neuro grossly intact: Yes Cognition: Normal Orientation: AAOx4 Norton Coma Scale Eye Opening: Spontaneous Sofi Coma Scale Verbal: Oriented Sofi Coma Scale Motor: Obeys Commands Norton Coma Scale Total: 15 Speech: Normal Motor strength normal: LUE, RUE, LLE, RLE Sensory: Normal - Psychological Associated symptoms: Normal affect, Normal mood - Skin Skin Temperature: Warm Skin Moisture: Dry Skin Color: Normal Course - Re-evaluation Re-evalutation: 04/24/20 16:17 Patient presents with right-sided chest pain going to her right shoulder. Her HEART score is 1. Dr. Hardwick will see as outpt. - Vital Signs Vital signs: Temp Pulse Resp BP Pulse Ox 98.7 F 15 140/100 H 100 04/24/20 14:52 04/24/20 15:06 04/24/20 15:06 04/24/20 15:06 - Laboratory Result Diagrams: 04/24/20 15:10 04/24/20 15:10 Laboratory results interpreted by me: 04/24/20 04/24/20 15:10 15:10 WBC 11.7 H RDW 15.0 H Eos % (Auto) 8.7 H Absolute Eos (auto) 1.0 H Chloride 110 H - Diagnostic Test Radiology reviewed: Image reviewed, Reports reviewed - EKG Interpretation by Il EKG shows normal: Sinus rhythm Rate: Normal - 92 Rhythm: NSR Reynolds/QRS: No: Right axis deviation, Left axis deviation Additional EKG results interpreted by me: 04/24/20 17:47 repeat at 1701 shows nsr, rate 81, nml axis, no change from previous Discharge - Discharge Clinical Impression: Chest pain Qualifiers: Chest pain type: unspecified Qualified Code(s): R07.9 - Chest pain, unspecified Condition: Stable Disposition: HOME, SELF-CARE Instructions: Chest Pain of Unclear Cause ([facility]) Additional Instructions: Dr. Hardwick, sanitation lead, will call you tomorrow to set up an appointment Prescriptions: Tramadol HCl [Ultram] 50 mg PO Q6 PRN 3 Days #12 tablet PRN Reason: Forms: Return to Work, Elevated Blood Pressure Referrals: KAT HARDWICK MD [ACTIVE STAFF] - Follow up tomorrow
--- NOTE | 2020-04-24 17:50 | EKG REPORT ---
SEVERITY:- NORMAL ECG - SINUS RHYTHM : Confirmed by: Diego Yun MD 24-Apr-2020 17:50:14
--- NOTE | 2020-04-24 17:50 | EKG REPORT ---
SEVERITY:- NORMAL ECG - SINUS RHYTHM : Confirmed by: Diego Yun MD 24-Apr-2020 17:49:09
[2020-04-24 18:45] VITALS: BP 140/92
== END 2020-04-24 18:44 | disposition home or self-care (01) ==
LOC: ER 14:51
DX: R07.9 Chest pain, unspecified (principal); I10 Essential (primary) hypertension; Z90.710 Acquired absence of both cervix and uterus
CPT/HCPCS: 93005; 99285; 96374; 36415; 85025; 80053; 84484; 85379; 71046; 93010; J3490 ×3; J2270

== ENCOUNTER 2020-07-24 08:35 | Emergency (ER) | payer MEDICAID ==
[2020-07-24 08:43] VITALS: BP 110/71
[2020-07-24] MEDS ORDERED: KETOROLAC TROMETHAMINE 60 MG/2 ML SDV IM ONE (10:08)
--- NOTE | 2020-07-24 10:48 | RADIOLOGY REPORT (SQ) ---
EXAM DESCRIPTION: CT ABD/PELVIS NO ORAL OR IV IMAGES COMPLETED DATE/TIME: 07/24/2020 7:29 am REASON FOR STUDY: left flank pain COMPARISON: None. TECHNIQUE: CT scan of the abdomen and pelvis performed without intravenous or oral contrast. Images reviewed with lung, soft tissue, and bone windows. Reconstructed coronal and sagittal MPR images revi ewed. All images stored on PACS. All CT scanners at this facility use dose modulation, iterative reconstruction, and/or weight based d osing when appropriate to reduce radiation dose to as low as reasonably achievable (ALARA). [facility]: Dose Right [facility]: CareDose [facility]: Dose Right [facility]: Teradose 4D [facility]: Lat49 RADIATION DOSE: CT Rad equipment meets quality standard of care and radiation dose reduction techniq ues were employed. CTDIvol: 5.0 mGy. DLP: 268 mGy-cm.mGy. LIMITATIONS: Suboptimal evaluation of the vasculature and solid organs due to lack of IV contrast. FINDINGS: LOWER CHEST: No basilar consolidation. NON-CONTRASTED LIVER, SPLEEN, ADRENALS: Evaluation limited by lack of IV contrast. No identified sign ificant masses. PANCREAS: No masses. No peripancreatic inflammatory changes. GALLBLADDER: Surgically absent. RIGHT KIDNEY AND URETER: No suspicious masses. Assessment limited by lack of IV contrast. No signif icant calcifications. No hydronephrosis or hydroureter. LEFT KIDNEY AND URETER: No suspicious masses. Assessment limited by lack of IV contrast. No signifi cant calcifications. No hydronephrosis or hydroureter. AORTA AND RETROPERITONEUM: No aneurysm. No retroperitoneal masses or adenopathy. BOWEL AND PERITONEAL CAVITY: No obvious masses or inflammatory changes. No free fluid. APPENDIX: Normal. PELVIS, BLADDER, AND ABDOMINAL WALL:Status posthysterectomy. No definite suspicious mass given lack of IV contrast. Urinary bladder is unremarkable. BONES: No significant findings. OTHER: No other significant finding. IMPRESSION: No acute abnormality on noncontrast CT of the abdomen and pelvis. COMMENT: Quality ID # [id number]: Final reports with documentation of one or more dose reduction techniques (e.g., Automated exposure control, adjustment of the mA and/or kV according to patient size, use of iterative reconstruction technique) TECHNICAL DOCUMENTATION: JOB ID: [id number] 2010 [employer] All Rights Reserved Reading location - IP/workstation name: [email or web address]
[2020-07-24 11:11] LABS: ABSOLUTE LYMPHOCYTES (AUTO) 1.1 10^3/uL (0.5-4.7); ABSOLUTE MONOCYTES (AUTO) 2.1 10^3/uL (0.1-1.4); ABSOLUTE NEUT (AUTO) 10.1 10^3/uL (1.7-8.2); BASOPHILS % (AUTO) 0.3 % (0-2); EOSINOPHILS % (AUTO) 0.3 % (0-6); HEMATOCRIT 38.7 % (36.0-47.0); HEMOGLOBIN 13.2 g/dL (12.0-15.5); LYMPHOCYTES % (AUTO) 8.4 % (13-45); MEAN CORPUSCULAR HEMOGLOBIN 32.2 pg (27.0-33.4); MEAN CORPUSCULAR HGB CONC 34.1 g/dL (32.0-36.0); MEAN CORPUSCULAR VOLUME 94 fl (80-97); MONOCYTES % (AUTO) 15.7 % (3-13); PLATELET COUNT 207 10^3/uL (150-450); RED CELL DISTRIBUTION WIDTH 13.8 % (11.5-14.0); SEGMENTED NEUTROPHILS % (AUTO) 75.3 % (42-78); TOTAL CELLS COUNTED % (AUTO) 100 %; WHITE BLOOD COUNT 13.4 10^3/uL (4.0-10.5)
[2020-07-24 11:41] LABS: ANION GAP 12 (5-19); BLOOD UREA NITROGEN 20 mg/dL (7-20); CALCIUM 9.1 mg/dL (8.4-10.2); CARBON DIOXIDE 25 mmol/L (22-30); CHLORIDE 96 mmol/L (98-107); GLUCOSE 116 mg/dL (75-110); POTASSIUM 3.3 mmol/L (3.6-5.0)
[2020-07-24] MEDS ORDERED: POTASSIUM CHLORIDE 20 MEQ PACKET PO ONE (13:32)
--- NOTE | 2020-07-24 13:34 | ER Document Report ---
ED General - General Chief Complaint: Flank Pain Stated Complaint: FLANK PAIN Time Seen by Provider: 07/24/20 09:30 Primary Care Provider: DEV MAYO MD [Primary Care Provider] - Follow up as needed Mode of Arrival: Medic Information source: Patient TRAVEL OUTSIDE OF THE [place] IN LAST 30 DAYS: No - HPI Notes: Patient presents complaining of 4 to 5 days of back pain. She states it started on the right side and is now present on the left side. She is also had dysuria. She states that she has had no blood in her urine. She denies any trauma. No fevers. She denies any vaginal discharge or bleeding. She states she is not concerned about a sexually transmitted disease. She has had some nausea but no vomiting. - Related Data Allergies/Adverse Reactions: No Known Allergies Allergy (Verified 09/10/19 11:37) Home Medications: Metoprolol, Losartan, HCTZ, Levothyroxine Past Medical History - General Information source: Patient - Social History Smoking Status: Current Every Day Smoker Frequency of alcohol use: None Drug Abuse: None Family History: Reviewed & Not Pertinent - Past Medical History Cardiac Medical History: Reports: Hx Hypertension Pulmonary Medical History: Reports: Hx Bronchitis Renal/ Medical History: Denies: Hx Peritoneal Dialysis GI Medical History: Reports: Hx Gastroesophageal Reflux Disease Past Surgical History: Reports: Hx Hysterectomy, Hx Thyroid Surgery - thyroid removed Review of Systems - Review of Systems Constitutional: denies: Chills, Fever Cardiovascular: denies: Chest pain, Palpitations Respiratory: denies: Cough, Short of breath -: Yes All other systems reviewed and negative Physical Exam - Vital signs Vitals: Temp Pulse Resp BP Pulse Ox 99.1 F 96 15 110/71 97 07/24/20 08:42 07/24/20 08:42 07/24/20 08:42 07/24/20 08:42 07/24/20 08:42 Interpretation: Normal - General General appearance: Appears well, Alert - HEENT Head: Normocephalic, Atraumatic Eyes: Normal Pupils: PERRL - Respiratory Respiratory status: No respiratory distress Chest status: Nontender Breath sounds: Normal Chest palpation: Normal - Cardiovascular Rhythm: Regular Heart sounds: Normal auscultation Murmur: No - Abdominal Inspection: Normal Distension: No distension Bowel sounds: Normal Tenderness: Nontender Organomegaly: No organomegaly - Back Back: Tender, CVA tenderness - Extremities General upper extremity: Normal inspection, Nontender, Normal color, Normal ROM, Normal temperature General lower extremity: Normal inspection, Nontender, Normal color, Normal ROM, Normal temperature, Normal weight bearing. No: Rinku's sign - Neurological Neuro grossly intact: Yes Cognition: Normal Orientation: AAOx4 Sofi Coma Scale Eye Opening: Spontaneous Kidder Coma Scale Verbal: Oriented Kidder Coma Scale Motor: Obeys Commands Kidder Coma Scale Total: 15 Speech: Normal Motor strength normal: LUE, RUE, LLE, RLE Sensory: Normal - Psychological Associated symptoms: Normal affect, Normal mood - Skin Skin Temperature: Warm Skin Moisture: Dry Skin Color: Normal Course - Re-evaluation Re-evalutation: 07/24/20 14:07 pt has obvious UTI - Vital Signs Vital signs: Temp Pulse Resp BP Pulse Ox 99.1 F 96 15 110/71 97 07/24/20 08:42 07/24/20 08:42 07/24/20 08:42 07/24/20 08:42 07/24/20 08:42 - Laboratory Results Result Diagrams: 07/24/20 10:35 07/24/20 10:35 Laboratory Results Interpreted: 07/24/20 07/24/20 07/24/20 10:35 10:35 13:33 WBC 13.4 H Lymph % (Auto) 8.4 L Bleckley % (Auto) 15.7 H Absolute Neuts (auto) 10.1 H Absolute Monos (auto) 2.1 H Sodium 133.2 L Potassium 3.3 L Chloride 96 L Est GFR (MDRD) Non-Af 56 L Glucose 116 H Urine Protein 100 H Urine Blood MODERATE H Urine Urobilinogen 2.0 H Ur Leukocyte Esterase LARGE H Urine Ascorbic Acid 20 H Critical Laboratory Results Reviewed: No Critical Results - Radiology Results Critical Radiology Results Reviewed: No Critical Results Discharge - Discharge Clinical Impression: UTI (urinary tract infection) Qualifiers: Urinary tract infection type: acute cystitis Hematuria presence: with hematuria Qualified Code(s): N30.01 - Acute cystitis with hematuria Condition: Stable Disposition: HOME, SELF-CARE Instructions: Urinary Tract Infection ([facility]) Additional Instructions: Call your primary doctor as soon as possible to schedule a recheck Prescriptions: Ondansetron [Zofran Odt 4 mg Tablet] 1 - 2 tab PO Q4HP PRN #10 tab.rapdis PRN Reason: Levofloxacin [Levaquin 500 mg Tablet] 500 mg PO DAILY 7 Days #7 tablet Hydrocodone/Acetaminophen [Tabor 5-325 mg Tablet] 1 tab PO Q6 PRN 3 Days #12 ta blet PRN Reason: Forms: Return to Work Referrals: DEV MAYO MD [Primary Care Provider] - Follow up in 3-5 days
[2020-07-24 13:58] LABS: APPEARANCE,URINE CLOUDY; BILIRUBIN,URINE NEGATIVE (NEGATIVE); COLOR,URINE AMBER; GLUCOSE, URINE NEGATIVE (NEGATIVE); KETONES,URINE NEGATIVE (NEGATIVE); LEUKOCYTE ESTERASE,URINE LARGE (NEGATIVE); NITRITE,URINE NEGATIVE (NEGATIVE); PROTEIN,URINE 100 mg/dL (NEGATIVE); URINE SPECIFIC GRAVITY 1.021
[2020-07-24] MEDS ORDERED: LIDOCAINE 1% INJ-PF (10 MG/ML) 30 ML SDV INJ ONE (14:10)
[2020-07-24] MEDS ORDERED: CEFTRIAXONE INJ 1000 MG VIAL IM ONE (14:10)
== END 2020-07-24 14:53 | disposition home or self-care (01) ==
LOC: ER 08:35
DX: N30.01 Acute cystitis with hematuria (principal); R10.9 Unspecified abdominal pain; M54.9 Dorsalgia, unspecified; R30.0 Dysuria; F17.200 Nicotine dependence, unspecified, uncomplicated; I10 Essential (primary) hypertension; Z90.710 Acquired absence of both cervix and uterus
CPT/HCPCS: 99285; 96372; 36415; 85025; 81025; 80048; 81001; 74176; J1885; J3490 ×2; J0696